=== PATIENT | female | born 1990 | race Caucasian/White ===

== ENCOUNTER → 2020-11-28 10:24 | Outpatient (BNVA) | payer OTHER, SELFPAY | PROVIDERS: PCP Internal Medicine; Visit Provider Surgery | DX: Z01.818 Encounter for other preprocedural examination (principal); E66.01 Morbid (severe) obesity due to excess calories; Z68.43 Body mass index [BMI] 50.0-59.9, adult; R06.02 Shortness of breath | CPT/HCPCS: 99212 ==

== ENCOUNTER → 2020-12-12 08:01 | Outpatient (BNVA) | payer OTHER, SELFPAY | PROVIDERS: Visit Provider Surgery ==

== ENCOUNTER 2020-12-13 09:20 | Outpatient (REF) | payer OTHER, SELFPAY ==
[2020-12-15 12:36] LABS: H Pylori Breath Test NOT DETECTED (NOT DETECTED)
== END 2020-12-13 09:21 | disposition home or self-care (01) ==
LOC: HO.LNP 09:20
PROVIDERS: Visit Provider Physician Assistant
DX: Z01.818 Encounter for other preprocedural examination (principal); Z11.0 Encounter for screening for intestinal infectious diseases
CPT/HCPCS: 83013; 99211

== ENCOUNTER → 2020-12-16 08:01 | Outpatient (BNVA) | payer OTHER, SELFPAY | PROVIDERS: Visit Provider Surgery ==

== ENCOUNTER → 2020-12-26 08:11 | Outpatient (BNVA) | payer OTHER, SELFPAY | PROVIDERS: Visit Provider Dietitian, Registered | DX: E66.01 Morbid (severe) obesity due to excess calories (principal) | CPT/HCPCS: 97802 ==

== ENCOUNTER → 2021-01-02 09:28 | Outpatient (REF) | payer OTHER, SELFPAY ==
--- NOTE | ~2021-01-02 | XR_ITS ---
EXAMINATION: XR CHEST CLINICAL INFORMATION: Shortness of breath. COMPARISON: Chest radiograph dated 04/16/2019. TECHNIQUE: 2 views of the chest were obtained. FINDINGS: The lungs are clear. The cardiomediastinal silhouette is normal in size. There is no pleural effusion or pneumothorax. No acute osseous abnormality. XR/XR chest 2V IMPRESSION: No acute cardiopulmonary findings.
--- NOTE | 2021-01-02 09:36 | ECG_ITS ---
Test Reason : SOB Blood Pressure : / mmHG Vent. Rate : 077 BPM Atrial Rate : 077 BPM P-R Int : 162 ms QRS Dur : 094 ms QT Int : 384 ms P-R-T Axes : 027 019 021 degrees QTc Int : 434 ms Normal sinus rhythm Early repolarization Borderline ECG When compared with ECG of 16-APR-2019 11:14, No significant change was found Referred By: Keely Tay Electronically Signed By:GIBRAN GILLILAND
[2021-01-02 10:29] LABS: MANUAL DIFF FLAG NO
[2021-01-02 10:36] LABS: Basophils Percent Auto 0.3 % (0-2); Eosinophils Absolute Auto 0.2 X10*3/uL (0.0-0.4); Hematocrit 41.2 % (37-47); Hemoglobin 13.4 g/dl (12.0-16.0); Imm Gran Abs Auto 0.05 X10*3/uL (0.00-0.03); Imm Gran Pct Auto 0.8 % (0.0-0.4); Lymphocytes Absolute Auto 1.1 X10*3/uL (1.2-4.9); Mean Corpuscular HGB Conc 32.5 g/dl (31.0-35.0); Mean Corpuscular Hemoglobin 29.2 pg (27.0-33.0); Mean Corpuscular Volume 89.8 fL (80-98); Mean Platelet Volume 9.7 fL (9.4-12.3); Monocytes Absolute Auto 0.4 X10*3/uL (0.1-1.2); Neutrophils Absolute Auto 4.6 X10*3/uL (2.0-8.3); Neutrophils Percent Auto 71.9 % (45-73); Platelet Count 293 X10*3/uL (160-400); Red Blood Count 4.59 X10*6/uL (4.20-5.50); Red Cell Distribution Width 13.4 % (11.0-16.0); White Blood Count 6.3 X10*3/uL (4.8-10.8)
[2021-01-02 10:52] LABS: Estimated Average Glucose 88 mg/dL; Hemoglobin A1c % 4.7 %
[2021-01-02 11:08] LABS: Alanine Aminotransferase 27 U/L (0-31); Albumin Level 4.1 g/dL (3.5-5.0); Alkaline Phosphatase 72 U/L (39-117); Anion Gap 13 (12-20); Aspartate Amino Transferase 15 U/L (5-31); Bilirubin Total 0.4 mg/dL (0.0-1.0); Blood Urea Nitrogen 10 mg/dL (9-16); C Reactive Protein 1.02 mg/dL (< or = 0.50); Calcium 9.2 mg/dL (8.4-10.2); Carbon Dioxide 26 mmol/L (22-29); Chloride 105 mmol/L (96-108); Cholesterol 142 mg/dL; Estimated Glomerular Filt Rate > 60; Glucose Fasting 93 mg/dL (60-99); HDL Cholesterol 29 mg/dL; Iron 75 mcg/dL (30-160); LDL Cholesterol Calculated 92 mg/dl; Percent Iron Saturation 24 % (15-50); Potassium 4.2 mmol/L (3.3-5.1); Sodium 140 mmol/L (135-145); Total Iron Binding Capacity 307 mcg/dL (228-428); Total Protein 6.8 g/dL (6.5-8.0); Triglycerides 105 mg/dL; Unsaturated Iron Binding 232 ug/dL
[2021-01-02 11:29] LABS: Thyroid Stimulating Hormone 0.45 uIU/mL (0.32-4.0); Vitamin D 25-OH Total 12.2 ng/mL (>30)
[2021-01-02 11:33] LABS: Vitamin B12 373 pg/mL (200-900)
[2021-01-03 12:22] LABS: Calcium (PTHI) 9.5 mg/dL (8.6-10.2); PTHI 82 pg/mL (14-64)
[2021-01-05 16:02] LABS: Zinc 73 mcg/dL (60-130)
[2021-01-05 20:46] LABS: Vitamin A 33 mcg/dL (38-98)
[2021-01-06 06:21] LABS: Vitamin B1 <6 nmol/L (8-30)
== END ==
LOC: HO.CARD 09:28
PROVIDERS: Visit Provider Surgery
DX: Z01.818 Encounter for other preprocedural examination (principal); R06.02 Shortness of breath; K91.2 Postsurgical malabsorption, not elsewhere classified; Z90.3 Acquired absence of stomach [part of]
CPT/HCPCS: 36415; 71046; 80053; 80061; 82306; 82607; 83036; 83540; 83970; 84425; 84443; 84590; 84630; 85025; 86140; 93005

== ENCOUNTER → 2021-01-10 10:22 | Outpatient (BNVA) | payer OTHER, SELFPAY | PROVIDERS: Visit Provider Surgery | DX: E66.01 Morbid (severe) obesity due to excess calories (principal); Z68.43 Body mass index [BMI] 50.0-59.9, adult | CPT/HCPCS: 99212 ==

== ENCOUNTER → 2021-01-27 09:24 | Outpatient (BNVA) | payer OTHER, SELFPAY | PROVIDERS: Visit Provider Surgery | DX: E66.01 Morbid (severe) obesity due to excess calories (principal); Z68.43 Body mass index [BMI] 50.0-59.9, adult | CPT/HCPCS: 99212 ==

== ENCOUNTER → 2021-02-14 09:44 | Outpatient (BNVA) | payer OTHER, SELFPAY | PROVIDERS: PCP Physician Assistant; Visit Provider Surgery | DX: E66.01 Morbid (severe) obesity due to excess calories (principal); Z68.43 Body mass index [BMI] 50.0-59.9, adult | CPT/HCPCS: 99212 ==

== ENCOUNTER → 2021-04-04 13:45 | Outpatient (BNVA) | payer OTHER, SELFPAY | PROVIDERS: PCP Physician Assistant; Visit Provider Surgery | DX: E66.01 Morbid (severe) obesity due to excess calories (principal); K21.9 Gastro-esophageal reflux disease without esophagitis; I10 Essential (primary) hypertension; Z68.42 Body mass index [BMI] 45.0-49.9, adult; Z88.8 Allergy status to other drugs, medicaments and biological substances; Z79.899 Other long term (current) drug therapy | CPT/HCPCS: 99212 ==

== ENCOUNTER 2021-04-06 09:31 | Outpatient (REF) | payer OTHER, SELFPAY ==
[2021-04-06 10:49] LABS: Vitamin D 25-OH Total 26.2 ng/mL (>30)
[2021-04-12 10:32] LABS: Vitamin A 45 mcg/dL (38-98)
[2021-04-12 13:16] LABS: Vitamin B1 9 nmol/L (8-30)
[2021-04-14 22:27] LABS: Cotinine, U <2 ng/mL; Nicotine, U 2 ng/mL
== END 2021-04-06 09:32 | disposition home or self-care (01) ==
LOC: HO.LAB 09:31
PROVIDERS: PCP Physician Assistant; Visit Provider Surgery
DX: Z01.818 Encounter for other preprocedural examination (principal); E55.9 Vitamin D deficiency, unspecified; E51.9 Thiamine deficiency, unspecified; F17.200 Nicotine dependence, unspecified, uncomplicated; E50.9 Vitamin A deficiency, unspecified
CPT/HCPCS: 80323; 82306; 84425; 84590

== ENCOUNTER → 2021-04-27 09:07 | Outpatient (BNVA) | payer OTHER, SELFPAY | PROVIDERS: PCP Physician Assistant; Referring Provider Physician Assistant; Visit Provider Surgery | DX: E66.01 Morbid (severe) obesity due to excess calories (principal); Z68.43 Body mass index [BMI] 50.0-59.9, adult | CPT/HCPCS: 99212 ==

== ENCOUNTER → 2021-04-28 13:20 | Outpatient (BNVA) | payer OTHER, SELFPAY | PROVIDERS: PCP Physician Assistant; Visit Provider Physician Assistant ==

== ENCOUNTER 2021-05-03 10:32 | Inpatient (IN) | payer OTHER, SELFPAY ==
[2021-04-27 11:17] VITALS: BMI 49.2
--- NOTE | 2021-04-28 14:48 | ECG_ITS ---
Test Reason : SOB Blood Pressure : / mmHG Vent. Rate : 077 BPM Atrial Rate : 077 BPM P-R Int : 156 ms QRS Dur : 094 ms QT Int : 384 ms P-R-T Axes : 050 028 032 degrees QTc Int : 434 ms Normal sinus rhythm Normal ECG When compared with ECG of 02-JAN-2021 09:41, No significant change was found Referred By: Keely Tay Electronically Signed By:Michael Winchester
[2021-04-28 15:24] LABS: MANUAL DIFF FLAG NO
[2021-04-28 15:34] LABS: Basophils Percent Auto 0.2 % (0-2); Eosinophils Absolute Auto 0.4 X10*3/uL (0.0-0.4); Eosinophils Percent Auto 3.7 % (0-4); Glucose Urine UA NEG (NEG); Hematocrit 40.7 % (37-47); Hemoglobin 13.1 g/dl (12.0-16.0); Imm Gran Abs Auto 0.04 X10*3/uL (0.00-0.03); Imm Gran Pct Auto 0.4 % (0.0-0.4); Leukocyte Esterase Urine NEG (NEG); Lymphocytes Absolute Auto 1.4 X10*3/uL (1.2-4.9); Lymphocytes Percent Auto 14.2 % (20-40); Mean Corpuscular HGB Conc 32.2 g/dl (31.0-35.0); Mean Corpuscular Hemoglobin 28.9 pg (27.0-33.0); Mean Corpuscular Volume 89.6 fL (80-98); Mean Platelet Volume 9.6 fL (9.4-12.3); Monocytes Absolute Auto 0.6 X10*3/uL (0.1-1.2); Neutrophils Absolute Auto 7.5 X10*3/uL (2.0-8.3); Neutrophils Percent Auto 75.5 % (45-73); Nitrite Urine NEG (NEG); Platelet Count 280 X10*3/uL (160-400); Red Blood Count 4.54 X10*6/uL (4.20-5.50); Red Cell Distribution Width 13.9 % (11.0-16.0); Specific Gravity - Urine 1.015 (1.005-1.025); Urine Blood NEG (NEG); Urine Ketones NEG (NEG); Urine Protein NEG (NEG-TRACE)
[2021-04-28 15:36] LABS: Appearance Urine HAZY; Color Urine YELLOW
[2021-04-28 15:37] LABS: UPreg QC Valid YES; Urine Pregnancy NEGATIVE (NEGATIVE)
[2021-04-28 15:38] LABS: INTERNATIONAL NORM RATIO 1.1 (0.9-1.1); Prothrombin Time 12.6 SEC (9.9-13.0)
[2021-04-28 15:40] LABS: Partial Thromboplastin Time 37.2 SEC (24.1-38.0)
[2021-04-28 15:46] LABS: Anion Gap 12 (12-20); Blood Urea Nitrogen 12 mg/dL (9-16); Calcium 9.4 mg/dL (8.4-10.2); Carbon Dioxide 24 mmol/L (22-29); Chloride 106 mmol/L (96-108); Creatinine Clr Calc Pharmacy 164.1; Estimated Glomerular Filt Rate > 60; Glucose Random 78 mg/dL (60-115); Potassium 4.2 mmol/L (3.3-5.1); Sodium 138 mmol/L (135-145)
--- NOTE | 2021-05-01 13:35 | HO.ANESPROP2 ---
Documented by User: Ellen Rahmanney 05/01/21 13:36 HPI - Anesthesia Eval Consult details Narrative: 30yo F for Gastrectomy Sleeve,EGD, Poss Diaphragmatic Hernia, Poss Ventral Hernia, Poss open PMFSH Active Problems Active Problems: All Active Problems (Updated 04/27/21 @ 11:21 by Zora Pratt) Preoperative examination (Acute) Shortness of breath (Acute) BMI 50.0-59.9, adult (Acute) Adjustment disorder, unspecified (Acute) Vitamin D deficiency (Acute) Vitamin A deficiency (Acute) Vitamin B1 deficiency (Acute) Smoker (Acute) Morbid obesity due to excess calories (Acute) Past Medical History Medical History Arthritis Asthma BMI 45.0-49.9, adult COVID-19 vaccine series completed GERD (gastroesophageal reflux disease) HTN (hypertension) Hx of concussion Morbid obesity due to excess calories Family History Family History Mother Colitis Anemia Father Hypertension Cancer of lung Sister Acute bronchitis Son No problems noted. Son No problems noted. Daughter No problems noted. Surgical History Surgical History Hx of section Hx of local excision of skin lesion Hx of wisdom tooth extraction Social History Social History Are you a primary anesthesiologist and critical care to a significant other at home: Yes (children-currently living with parents) Do you presently have visiting nurse or other home services: No Alcohol intake: current Alcohol intake frequency: holidays/special occasions only Patient Tobacco Use Status: Former Tobacco user Quit Date: 02/2021 Tobacco use type: Cigarette Years Smoked: 13 Use of substances other than those prescribed or required for medical reasons: No Have you been hit, kicked, punched, or otherwise hurt by someone within the past year? If so, by whom?: No Are you DNR?: No Advance Directives: No (states is mother but no official form) Advance Directives Information Provided: Yes (states is mother) Advance Directives on File: No Recently lost weight without trying: No Eating poorly because of decreased appetite: No Nutrition Risks: No Nutritional Risk Patient : No (has IUD) FDLMP: N/A-has IUD : No Poor oral hygiene: No (one cracked molar-lower left) Meds Allergies Allergy/AdvReac Type Severity Reaction Status Date / Time minocycline Allergy Intermediate Rash Verified 04/26/21 11:45 Home Medications Medication Instructions Recorded Confirmed Last Taken Type epinephrine 0.3 mg/0.3 mL 0.3 ml IM ONCE PRN 11/28/20 04/27/21 Unknown History injection, auto-injector lisinopril 10 1 tab PO DAILY 11/28/20 04/27/21 Unknown History mg-hydrochlorothiazide 12.5 mg tablet levonorgestrel 20 mcg/24 hours (6 1 insert INTRAUTERINE CONT 04/04/21 04/27/21 Unknown History yrs) 52 mg intrauterine device (Mirena) ergocalciferol (vitamin D2) 1,250 1 cap PO QWEEK 04/27/21 04/27/21 Unknown History mcg (50,000 unit) capsule Exam Exam Date and Time: May 01, 2021 1335 Height,Weight and Vital Signs: Height 5 ft 7 in Weight 142.609 kg Pertinent Lab Results Pertinent Lab Results: Laboratory Tests 04/28/21 04/28/21 04/28/21 15:00 15:00 15:00 WBC 10.0 RBC 4.54 Hgb 13.1 Hct 40.7 MCV 89.6 MCH 28.9 MCHC 32.2 RDW 13.9 Plt Count 280 MPV 9.6 Immature Gran % (Auto) 0.4 Neut % (Auto) 75.5 H Lymph % (Auto) 14.2 L [place] % (Auto) 6.0 Eos % (Auto) 3.7 Baso % (Auto) 0.2 Lymph # (Auto) 1.4 [place] # (Auto) 0.6 Eos # (Auto) 0.4 Baso # (Auto) 0.0 Abs Immat Gran (auto) 0.04 H Absolute Neuts (auto) 7.5 Absolute Nucleated RBC 0.000 Nucleated RBC % (auto) 0.0 PT 12.6 INR 1.1 APTT 37.2 Sodium Potassium Chloride Carbon Dioxide Anion Gap BUN Creatinine Estim Creat Clear Calc Estimated GFR Random Glucose Calcium Albumin Urine Color YELLOW Urine Appearance HAZY Urine pH 8.0 Ur Specific [place] 1.015 Urine Protein NEG Urine Glucose (UA) NEG Urine Ketones NEG Urine Blood NEG Urine Nitrite NEG Ur Leukocyte Esterase NEG Urine Test Blood Type Antibody Screen 04/28/21 04/28/21 04/28/21 15:00 15:00 15:00 WBC RBC Hgb Hct MCV MCH MCHC RDW Plt Count MPV Immature Gran % (Auto) Neut % (Auto) Lymph % (Auto) Am[place] % (Auto) Eos % (Auto) Baso % (Auto) Lymph # (Auto) [place] # (Auto) Eos # (Auto) Baso # (Auto) Abs Immat Gran (auto) Absolute Neuts (auto) Absolute Nucleated RBC Nucleated RBC % (auto) PT INR APTT Sodium 138 Potassium 4.2 Chloride 106 Carbon Dioxide 24 Anion Gap 12 BUN 12 Creatinine 0.73 Estim Creat Clear Calc 164.1 Estimated GFR > 60 Random Glucose 78 Calcium 9.4 Albumin 4.0 Urine Color Urine Appearance Urine pH Ur Specific [place] Urine Protein Urine Glucose (UA) Urine Ketones Urine Blood Urine Nitrite Ur Leukocyte Esterase Urine Test NEGATIVE Blood Type A Positive Antibody Screen NEGATIVE Narrative Narrative: EKG 04/2021 Vent. Rate : 077 BPM ? ? Atrial Rate : 077 BPM ?? P-R Int : 156 ms? QRS Dur : 094 ms ? ? QT Int : 384 ms ? ? ? P-R-T Axes : 050 028 032 degrees ?? QTc Int : 434 ms ? Normal sinus rhythm Normal ECG When compared with ECG of 02-JAN-2021 09:41, No significant change was found Assessment and Plan Assessment Anesthesia Assessment: Chart Reviewed Documented by User: Italia Tucker MD 05/03/21 12:26 [facility] Past Medical History Medical History Arthritis Asthma BMI 45.0-49.9, adult COVID-19 vaccine series completed GERD (gastroesophageal reflux disease) HTN (hypertension) Hx of concussion Morbid obesity due to excess calories Family History Family History Mother Colitis Anemia Father Hypertension Cancer of lung Sister Acute bronchitis Son No problems noted. Son No problems noted. Daughter No problems noted. Family history of problems with anesthesia: No Surgical History Surgical History Hx of section Hx of local excision of skin lesion Hx of wisdom tooth extraction History of Problems with Anesthesia: No Social History Social History Are you a primary anesthesiologist and critical care to a significant other at home: Yes (children-currently living with parents) Do you presently have visiting nurse or other home services: No Alcohol intake: current Alcohol intake frequency: holidays/special occasions only Patient Tobacco Use Status: Former Tobacco user Quit Date: 02/2021 Tobacco use type: Cigarette Years Smoked: 13 Use of substances other than those prescribed or required for medical reasons: No Have you been hit, kicked, punched, or otherwise hurt by someone within the past year? If so, by whom?: No Are you DNR?: No Advance Directives: No (states is mother but no official form) Advance Directives Information Provided: Yes (states is mother) Advance Directives on File: No Recently lost weight without trying: No Eating poorly because of decreased appetite: No Nutrition Risks: No Nutritional Risk Patient : No (has IUD) FDLMP: N/A-has IUD : No Poor oral hygiene: No (one cracked molar-lower left) Meds Allergies Allergy/AdvReac Type Severity Reaction Status Date / Time minocycline Allergy Intermediate Rash Verified 04/26/21 11:45 Home Medications Medication Instructions Recorded Confirmed Last Taken Type epinephrine 0.3 mg/0.3 mL 0.3 ml IM ONCE PRN 11/28/20 04/27/21 Unknown History injection, auto-injector lisinopril 10 1 tab PO DAILY 11/28/20 04/27/21 Unknown History mg-hydrochlorothiazide 12.5 mg tablet levonorgestrel 20 mcg/24 hours (6 1 insert INTRAUTERINE CONT 04/04/21 04/27/21 Unknown History yrs) 52 mg intrauterine device (Mirena) ergocalciferol (vitamin D2) 1,250 1 cap PO QWEEK 04/27/21 04/27/21 Unknown History mcg (50,000 unit) capsule Exam Airway Mallampati Class: II TM Dist: >3cm Neck ROM: Full Assessment and Plan Assessment Anesthesia Assessment: Anesthesia Plan Discussed Final Anesthetic Review Family History of Problems with Anesthesia: No History of Problems with Anesthesia: No NPO: Yes ASA Class: III Final Preanesthetic Review: No Changes in Pt Med Stat, Meds/Allgs Chart Reviewed, Consent Obtained/Reviewed and Anes Risks/Benef Reviewed Patient Risk: Intermediate Procedure Risk: Intermediate Assessment/Block/Sedation in SS: Assess/Block/Sedation-SS Anesthetic Plan Anesthetic Plan: GA Disposition: Standard PACU
--- NOTE | 2021-05-02 16:03 | MHC.SHP ---
Pre-Procedural Eval Section A Date of Service: 05/02/21 Section B Chief Complaint: Morbid Severe Obesity Allergies: Allergies Allergy/AdvReac Type Severity Reaction Status Date / Time minocycline Allergy Intermediate Rash Verified 04/26/21 11:45 Plan I have reviewed the history and physical and performed a pertinent physical examination on my patient. No changes have occurred unless specified.
[2021-05-03] VITALS (15 sets, daily range): BP systolic 150–181; BP diastolic 62–101; PULSE 53–85; RESP 16–20; TEMP 36.3–36.9; O2SAT 96–100
[2021-05-03 10:52] LABS: UPreg QC Valid YES; Urine Pregnancy NEGATIVE (NEGATIVE)
[2021-05-03 11:05] LABS: COVID-19 Test Negative (Negative); IDNOW Serial# 9DD0AD1C
--- NOTE | 2021-05-03 14:17 | PM.OP ---
Brief Operative Note Date of Service: 05/03/21 Pre-op diagnosis: Morbid obesity, BMI 49.2, hypertension, gastroesophageal reflux disease Post-op diagnosis: other (Same and hiatal hernia) Procedure: Laparoscopic sleeve gastrectomy, hiatal hernia repair, intraoperative endoscopy, and Rikki block Implants: None Surgeon: Keely Tay MD Anesthesia: GETA Was an Emergency Spill Response Technician used for this Procedure?: Yes Emergency Spill Response Technician: Shameka Hartman Estimated blood loss (mL): 5 Pathology: other (Partial gastrectomy) Condition: stable Disposition: PACU
--- NOTE | 2021-05-03 14:18 | P.OP_ITS ---
Operative Note Operative Note Date of Service: 05/03/21 Narrative: Patient was brought into the operating room and placed on the operating room table in the supine position. General anesthesia was induced. Normal DVT prophylaxis was instituted and the patient received 2 grams of cefotetan preoperatively. The abdomen was then prepped and draped in the normal sterile fashion. A safety time-out was performed. A mixture of 1% lidocaine with epinephrine and ?% Marcaine plain was used to an esthetize the planned incision site in the left upper quadrant. A #11 scalpel was used to make a 5 mm left upper quadrant transverse incision through which a veress needle was placed. Three pops were heard going through the fascia. A saline drop test was used to confirm that the veress needle was intraabdominal. An optiview technique was then used to place a 5mm port in the left upper quadrant. A 5 mm 30 degree laproscope was then placed through this port and the abdominal cavity was surveyed and was normal. The patient was placed in reverse Trendelenburg positioning. A beena liver retractor was then placed in the subxyphoid position and it was used to hold up the left lobe of the liver to the abdominal wall. This was secured to the bed using the liver retractor nguyen. A RAFITA block was then performed for pain control on the right side of the abdomen. A 5 mm port was placed in the right upper quadrant near the falciform ligament. A 12 mm port was then placed in the mid epigastrium. One additional 5 mm port was placed in the left upper quadrant just to the left of the placement of the first port. I then performed a RAFITA block on the left side of the abdomen. I then removed the epigastric fat pad; there was a small anterior hiatal hernia noted. I reapproximated the left and right crura with a total of 2 stitches of 2-0 ethibond and a laparoscopic knot pusher. There was no residual hiatal hernia. I then opened up the angle of His. We then gained entry into the lesser sac about 4-5 cm from the pylorus. I had anesthesia place a 34 [place] orogastric tube into the distal antrum to use as a sizing tool for gastric pouch size. I divided the short gastric vessels up to the angle of His. We then started the creation of the gastric pouch by firing a 60 mm purple load endostapler up the stomach about 4-5 cm from the pylorus. We completed the creation of the gastric pouch using a total of 5 firings of a 60 mm purple load stapler. We had anesthesia remove the orogastric tube, then we clamped across the distal antrum using a fired 60 mm endostapler. We flattened the patient and then instilled normal saline surrounding the newly created staple line. I then performed an on-table endoscopy. I passed the gastroscopy into the posterior oropharynx and down the esophagus evaluating the esophageal mucosa which was normal. There was no evidence of hiatal hernia. I passed the gastroscope into the gastric pouch and insufflated the gastric pouch. There was healthy pink mucosa and no evidence of active bleeding. There was no evidence of leak on laparoscopy. I desufflated the gastric pouch and removed the endoscope. I removed the endostapler from the abdomen and suctioned the fluid from the left upper quadrant. I then removed the partial gastrectomy specimen through the epigastric 12 mm port site. I reapproximated the 12 mm port using a 0 maxon suture with a laparoscopic suture passer. I instilled local anesthetic into the fascial closure site and tied the suture down at a pressure of 8-10 mm of Hg. There was no residual fascial defect. We removed the liver retractor and the left upper quadrant 5 mm ports under direct visualization. There was no evidence of any active bleeding. I desufflated the abdomen through the last remaining port and removed the laparoscope and 5 mm port. We reapproximated all incisions with a 4-0 monocryl subcuticular stitch. We cleaned and dried the abdominal skin and applied dermabond skin glue. All count were correct at the end of the case. The patient was awake and in stable condition prior to extubation and transfer to the recovery room.
[2021-05-03] MEDS: Metoclopramide HCl 10 MG/2 ML VIAL IVPUSH (14:48)
[2021-05-03] MEDS: Lactated Ringers 1,000 ML 125 ML IVCONT ×2 (15:28→23:06)
[2021-05-03] MEDS: HYDROmorphone HCl 0.5 MG/0.5 ML SYRINGE IVPUSH (15:30)
[2021-05-03] MEDS: HYDROmorphone HCl 0.5 MG/0.5 ML SYRINGE 0.25 MG IVPUSH (19:36)
[2021-05-03] MEDS: Famotidine/PF 20 MG/2 ML VIAL IVPUSH (20:49)
[2021-05-03] MEDS: 0.9 % Sodium Chloride Flush 3 ML SYRINGE IVFLUSH (20:49)
--- NOTE | 2021-05-03 21:12 | P.DS_ITS ---
DS: Providers Provider Date of Service: 05/04/21 Date of admission: 05/03/21 10:32 Primary care physician: ROBERT Islas DS: Medications Discharge Medications Home Medications: Home Medications Medication Instructions Recorded Confirmed epinephrine 0.3 mg/0.3 mL 0.3 ml IM ONCE PRN 11/28/20 04/27/21 injection, auto-injector lisinopril 10 1 tab PO DAILY 11/28/20 04/27/21 mg-hydrochlorothiazide 12.5 mg tablet levonorgestrel 20 mcg/24 hours (6 1 insert INTRAUTERINE CONT 04/04/21 04/27/21 yrs) 52 mg intrauterine device (Mirena) ergocalciferol (vitamin D2) 1,250 1 cap PO QWEEK 04/27/21 04/27/21 mcg (50,000 unit) capsule Previous Rx's Medication Instructions Recorded acetaminophen 500 mg tablet 1,000 mg PO Q6H PRN #30 tab 04/27/21 (Tylenol Extra Strength) docusate sodium 100 mg capsule 100 mg PO BID #30 cap 04/27/21 (Colace) famotidine 20 mg tablet (Pepcid AC) 20 mg PO DAILY #30 tab 04/27/21 ondansetron HCl 4 mg tablet 4 mg PO Q6H PRN #30 tab 04/27/21 (Zofran) simethicone 80 mg chewable tablet 80 mg PO TID-QID PRN #30 tab 04/27/21 (Gas Relief (simethicone)) DS: Summary Time Spent with Patient Time attestation: Total time spent providing and/or coordinating discharge services: Discharge coordination time: Greater than 30 minutes Quality: Stroke Does the patient have a stroke diagnosis?: No Physical Exam Vital Signs: Vital Signs: Last Vital Signs Temp 97.3 F 05/03/21 19:22 Pulse 53 05/03/21 19:22 Resp 20 05/03/21 19:22 BP 160/80 H 05/03/21 19:40 Pulse Ox 96 05/03/21 19:22 Body Mass Index 49.2 DS: Data Data Completed and Pending Pending studies at discharge: Pending at discharge 05/03/21 13:59 Surgical [PTH] Routine Labs on day of discharge: Laboratory Results - last 24 hr 05/03/21 05/03/21 10:37 10:37 Urine Test NEGATIVE COVID-19 ([facility]) Negative COVID-19 Clin Com See Note Discharge Plan Discharge Patient Disposition: Home, Self-Care Discharge Diagnosis: obesity s/p LSG Referrals: Erica Woo PA [Primary Care Provider] - 1 Week Discharge Medications: Continued ergocalciferol (vitamin D2) 1,250 mcg (50,000 unit) capsule 1 cap PO QWEEK RF: 0 epinephrine 0.3 mg/0.3 mL auto-injector 0.3 ml IM ONCE PRN (Reason: Anaphylaxis) RF: 0 lisinopril-hydrochlorothiazide 10-12.5 mg tablet 1 tab PO DAILY RF: 0 acetaminophen [Tylenol Extra Strength] 500 mg tablet 1,000 mg PO Q6H PRN (Reason: pain) Qty: 30 RF: 1 famotidine [Pepcid AC] 20 mg tablet 20 mg PO DAILY Qty: 30 RF: 1 simethicone [Gas Relief (simethicone)] 80 mg tablet,chewable 80 mg PO TID-QID PRN (Reason: abdominal distention) Qty: 30 RF: 1 ondansetron HCl [Zofran] 4 mg tablet 4 mg PO Q6H PRN (Reason: nausea and vomiting) Qty: 30 RF: 1 docusate sodium [Colace] 100 mg capsule 100 mg PO BID Qty: 30 RF: 1 Mirena 20 mcg/24 hours (6 yrs) 52 mg intrauterine device 1 insert intrauterine CONT RF: 0 Discharge Orders: Discharge Order (Routine); Ordered 05/04/21 Ordered By: Keely Tay Diet: other Activity on Discharge: No heavy lifting Stand Alone Forms: Patient Portal Discharge page Activity Restrictions/Additional Instructions: Discharge Instructions 1. Please call your doctor or come back to the emergency room should any new symptoms arise. 2. You will receive a courtesy call from [facility] 24-48 hours after discharge. 3. Activity: abstain from alcohol, practice limited stair climbing, no bending, no driving, no exercise, no illicit substances, no lifting, no sex, no tub bath, no work. 4. Diet: continue stage 3 protein shakes until your [address] Tay. 5. Dressing Change/Wound Care: Your incision is covered by surgical glue. If the area is tender, you may apply an ice pack for short intervals (no more than 20 minutes on, followed by at least 20 minutes off). Do not apply heat. Do not use creams, lotions, or topical antibiotics unless instructed to do so by your surgeon. These can cause infection or allergic reaction. 6. Call your doctor if: - Your temperature exceeds 101.5 F - You experience excessive pain or swelling - You have an unexpected reaction to medication - You have excessive bleeding - You experience continued vomiting/nausea - Your incision begins to separate - Your incision shows signs of infection such as increased redness, swelling, excessive pain, heat, or drainage (light blood or clear fluid is normal) 7. General instructions: - No lifting greater than 5 lbs for the next 4 weeks. - No driving within 24 hours of taking narcotic pain medications. - If you do not move your bowels in the next 2 days, please take milk of magnesia over the counter. Please follow the post op diet and do not advance your diet until you are seen in the office in about 2 weeks. - Please walk around your home every hour or two to prevent blood clots from forming in your legs. You do not need to wake from sleeping to walk. - Please sleep in a bed or couch to prevent kinking at the hips and knees. - Please take your incentive spirometer (your lung inspector and adjuster golf club head) home with you and use it for the next few days to prevent pneumonias. - You may shower, no hot tubs, baths or swimming pools. - Please call the office with any questions or concerns such as increasing abdominal pain, fever, chills, shortness of breath, chest pain, leg pain or swelling, or redness or drainage from your incisions. - Please stay on stage 3 diet which includes sugar free clear liquids such as ice pops and jello and broth and crystal light. Avoid all carbonation. Please drink 3 protein shakes with at least 25-30 grams of protein daily or 3 of the Celebrate 4:1 shakes which can be purchased in our office. The Celebrate shakes have all of the bariatric vitamins you need if you consume these shakes. If you are drinking other protein shakes, you will need to purchase the Celebrate multivitamins and calcium that we provide in the office (they will provide all the vitamins you need). Please make sure you are consuming at least 40-60 ounces of water in addition to your 3 protein shakes daily. 8. Do not hesitate to contact the office with any questions at . The patient's medical history has been reviewed and they are considered low risk for post op DVT and therefore DVT prophylaxis is not considered necessary. Travel after surgery was reviewed. The patient has not disclosed any travel plans during the first 30 days after surgery and they have been advised that within the first 30 days after surgery any bus, plane, train or car travel over 2 hours in duration is contraindicated due to the possibility of developing blood clots from immobility. Any travel, needs to include periods of ambulation of 10 minutes in duration every 2 hours. The patient was instructed to discuss any plans for travel during this period with their bariatric surgeon. Discharge Summary Date of Service: 05/04/21 Pre-op diagnosis: Morbid obesity, BMI 49.2, hypertension, gastroesophageal reflux disease Post-op diagnosis: other (Same and hiatal hernia) Procedure: Laparoscopic sleeve gastrectomy, hiatal hernia repair, intraoperative endoscopy, and Rikki block Discharge Medications: 1. Simethicone 80mg tablet chewable (Si tablet every 6 hours orally for 7 days, #28, 1 RF) q4h prn gas 2. Acetaminophen 500 mg tablet (Si tablets as needed every 6 hours orally for 30 days, #240, 0 RF) 3. Ondansetron 4 mg tablet disintegrating (Si tablet every 6 hours orally for 7 days, #28, 1 RF) 4. Colace 100 mg capsule (Si capsule twice a day for 30 days, #60, 2 RF) 5. Pepcid 20 mg chewable tablet (Si tablet twice a day for 30 days, #60, 3 RF) Discharge Instructions: The patient should continue on the stage III bariatric diet, which includes 3 protein shakes of at least 20-30g of protein on a daily basis. The patient was encouraged to avoid drinking liquids with her protein shakes. They should wait 30-45 minutes in between her meals and drinking water. She should drink at least 40-60 ounces of water on a daily basis. They should ambulate while at home to avoid any blood clots in her lower extremities. They should call with any questions or concerns such as increase in abdominal pain, persistent nausea, vomiting, redness and drainage from her incisions, fever, chills, shortness of breast, or chest pain beyond what is normal for her. The patient should avoid all heavy lifting greater than 5 pounds for the next 4 weeks. The patient is already scheduled to follow up with me in 2 weeks time, but should call the office with any questions prior to that follow up appointment. The patient should not advance their diet until they are seen in the office for the 2 week appointment. Hospital Course: The patient was admitted after undergoing a LSG and HH repair. They were started on stage II (1 oz of fluid every 15 minutes) on POD #0. The next morning they were evaluated and started on stage III diet (protein shakes). All labs were within normal limits. On post-operative day #1 she was feeling better, nausea and epigastric pain improved and they were tolerating stage III bariatric diet well. The patient was discharged home. Discharge Disposition: Home. Care Plan Goals: weight loss Health Concerns: obesity Plan of Treatment: LSG Assessment: stable POD #1 Discharge Date/Time: 05/04/21 09:57
--- NOTE | 2021-05-03 21:12 | P.PNGS_ITS ---
Subjective Subjective Date of Service: 05/04/21 <Shameka Hartman PA-C - Last Filed: 05/03/21 21:13> 05/04/21 <Keely Tay MD - Last Filed: 05/04/21 12:28> Interval history: Pod #1 s/p LSG and HH repair. Doing well. Tolerating stage 3 diet, ambulating in hallway. Pain well controlled. Denies nausea or vomiting. Vitals and labs reviewed and are within limit for post op day 1. On exam, patient is well appearing, abdomen is soft, nd, mild appropriate incisional tenderness. Incisions c/d/i with dermabond in place. Plan: d/c home today. Follow up with me in 2 weeks. <Shameka Hartman PA-C - Last Filed: 05/03/21 21:13> Pod #1 s/p LSG and HH repair. Doing well. Tolerating stage 3 diet, ambulating in hallway. Pain well controlled. Denies nausea or vomiting. Vitals and labs reviewed and are within limit for post op day 1. On exam, patient is well appearing, abdomen is soft, nd, mild appropriate incisional tenderness. Incisions c/d/i with dermabond in place. Plan: d/c home today. Follow up with me in 2 weeks. 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 I agree with her history, physical exam and assessment and plan. Patient will be discharged home today to follow up with me again as an outpatient in 2 weeks. <Keely Tay MD - Last Filed: 05/04/21 12:28> Physical Exam Vital Signs: Vital Signs: Last Vital Signs Temp 97.3 F 05/03/21 19:22 Pulse 53 05/03/21 19:22 Resp 20 05/03/21 19:22 BP 160/80 H 05/03/21 19:40 Pulse Ox 96 05/03/21 19:22 Body Mass Index 49.2 <Shameka Hartman PA-C - Last Filed: 05/03/21 21:13> Const: General: cooperative, comfortable, no acute distress, alert and awake <Shameka Hartman PA-C - Last Filed: 05/03/21 21:13> Nutritional Appearance: obese <Shameka Hartman PA-C - Last Filed: 05/03/21 21:13> GI: Inspection: Yes normal to inspection, No distended and Yes incision (clean, dry, intact, dermabond in place) <Shameka Hartman PA-C - Last Filed: 05/03/21 21:13> Palpation (GI): Soft to palpation and Tenderness to palpation present (GI) (mild appropriate incisional tenderness) <Shameka Hartman PA-C - Last Filed: 05/03/21 21:13> Extrem: Right lower extremity: lower leg Details: Negative for no tenderness; No no edema <Shameka Hartman PA-C - Last Filed: 05/03/21 21:13> Left lower extremity: lower leg Details: Negative for no tenderness; No no edema <Shameka Hartman PA-C - Last Filed: 05/03/21 21:13> Procedures Date of Service Date of Service: 05/04/21 <Keely Tay MD - Last Filed: 05/04/21 12:28> Progress Note: A&P Fall Risk Details Current Medications: Current Medications Generic Name Dose Route Start Last Admin Trade Name Freq PRN Reason Stop Dose Admin Albuterol Sulfate 2.5 mg 05/03/21 10:32 Albuterol Sulfate (0.083%) 2.5 Mg/3 Ml Vial.Neb INHALE ONCE PRN Shortness of Breath/Wheezing Famotidine 20 mg 05/03/21 21:00 05/03/21 20:49 Famotidine/Pf 20 Mg/2 Ml Vial IVPUSH 20 mg BID ISAIAH Administration Hydromorphone HCl 0.5 mg 05/03/21 12:26 05/03/21 15:30 Hydromorphone Hcl 0.5 Mg/0.5 Ml Syringe IVPUSH 0.5 mg Q5M PRN Administration Pain, Severe (Pain Scale 7-10) Protocol Hydromorphone HCl 0.25 mg 05/03/21 14:26 05/03/21 19:36 Hydromorphone Hcl 0.5 Mg/0.5 Ml Syringe IVPUSH 0.25 mg Q4H PRN Administration pain Protocol Lactated Ringer's 1,000 mls @ 125 mls/hr 05/03/21 14:30 05/03/21 15:28 Lr IVCONT 125 mls/hr .Q8H ISAIAH Administration Cefotetan Disodium 2 gm/ 50 mls @ 100 mls/hr 05/04/21 00:00 Sodium Chloride IV 05/04/21 00:29 POSTOP ONE Acetaminophen 1,000 mg in 100 mls @ 16.7 mls/hr 05/03/21 14:30 05/03/21 19:40 Ofirmev IV 16.7 mls/hr .Q6H ISAIAH Administration Metoclopramide HCl 10 mg 05/03/21 14:26 05/03/21 14:48 Metoclopramide Hcl 10 Mg/2 Ml Vial IVPUSH 10 mg Q6H PRN Administration Nausea Ondansetron HCl 4 mg 05/03/21 12:26 Ondansetron Hcl 4 Mg/2 Ml Vial IVPUSH ONCE PRN Nausea and Vomiting Ondansetron HCl 4 mg 05/03/21 14:30 05/03/21 16:31 Ondansetron Hcl 4 Mg/2 Ml Vial IVPUSH Not Given Q8H ISAIAH Oxycodone HCl 5 mg 05/03/21 12:26 Oxycodone Hcl Immed Release 5 Mg Tablet PO ONCE PRN Pain, Severe (Pain Scale 7-10) Sodium Chloride 3 ml 05/03/21 16:00 05/03/21 20:49 0.9 % Sodium Chloride Flush 3 Ml Syringe IVFLUSH 3 ml QSHIFT ISAIAH Administration <Shameka Hartman PA-C - Last Filed: 05/03/21 21:13> Time Spent With Patient Time: Total time spent is greater than 50% in coordination of care (as documented) at patient's floor/unit and/or counseling patient: <Shameka Hartman PA-C - Last Filed: 05/03/21 21:13> Time with patient: less than 15 minutes <Keely Tay MD - Last Filed: 05/04/21 12:28> Quality Stroke Does the patient have a stroke diagnosis?: No <Keely Tay MD - Last Filed: 05/04/21 12:28> VTE Prior VTE?: No <Keely Tay MD - Last Filed: 05/04/21 12:28> VTE Risk Level:: Surgical - moderate <Keely Tay MD - Last Filed: 05/04/21 12:28> VTE Device Contraindication: N/A - Device Ordered <Keely Tay MD - Last Filed: 05/04/21 12:28> VTE Drug Contraindication: Treatment Not Indicated <Keely Tay MD - Last Filed: 05/04/21 12:28>
[2021-05-03] MEDS: lisinopriL 10 MG TABLET PO (21:35)
[2021-05-03] MEDS: ondansetron HCL 4 MG/2 ML VIAL IVPUSH (21:35)
[2021-05-04] VITALS: BP 162/70; PULSE 82; RESP 16; TEMP 36.7; O2SAT 97
[2021-05-04] MEDS: cefoTEtan disodium 2 GM in 0.9 % Sodium Chloride 50 ML IV (00:04)
[2021-05-04] MEDS: hydrALAZINE HCl 20 MG/ML VIAL 10 MG IVPUSH (02:09)
[2021-05-04] MEDS: Metoclopramide HCl 10 MG/2 ML VIAL IVPUSH (02:45)
[2021-05-04 04:00] VITALS: BP 154/80; PULSE 64; RESP 16; TEMP 36.9; O2SAT 99
[2021-05-04] MEDS: ondansetron HCL 4 MG/2 ML VIAL IVPUSH (06:14)
[2021-05-04] MEDS: Lactated Ringers 1,000 ML 125 ML IVCONT (06:15)
[2021-05-04 06:27] LABS: MANUAL DIFF FLAG NO
[2021-05-04 06:52] LABS: Basophils Percent Auto 0.2 % (0-2); Eosinophils Percent Auto 0.2 % (0-4); Hematocrit 38.7 % (37-47); Hemoglobin 12.8 g/dl (12.0-16.0); Imm Gran Abs Auto 0.07 X10*3/uL (0.00-0.03); Imm Gran Pct Auto 0.5 % (0.0-0.4); Lymphocytes Percent Auto 7.8 % (20-40); Mean Corpuscular HGB Conc 33.1 g/dl (31.0-35.0); Mean Corpuscular Hemoglobin 29.2 pg (27.0-33.0); Mean Corpuscular Volume 88.2 fL (80-98); Mean Platelet Volume 9.9 fL (9.4-12.3); Monocytes Absolute Auto 0.8 X10*3/uL (0.1-1.2); Monocytes Percent Auto 6.3 % (2-11); Neutrophils Absolute Auto 11.1 X10*3/uL (2.0-8.3); Platelet Count 282 X10*3/uL (160-400); Red Blood Count 4.39 X10*6/uL (4.20-5.50); Red Cell Distribution Width 13.3 % (11.0-16.0)
[2021-05-04 07:00] LABS: Anion Gap 12 (12-20); Blood Urea Nitrogen 10 mg/dL (9-16); Carbon Dioxide 23 mmol/L (22-29); Chloride 106 mmol/L (96-108); Creatinine Clr Calc Pharmacy 187.3; Estimated Glomerular Filt Rate > 60; Glucose Random 93 mg/dL (60-115); Potassium 3.9 mmol/L (3.3-5.1); Sodium 137 mmol/L (135-145)
[2021-05-04] MEDS: Famotidine/PF 20 MG/2 ML VIAL IVPUSH (07:16)
[2021-05-04 08:00] VITALS: BP 150/60; PULSE 58; RESP 16; TEMP 36.7; O2SAT 98
--- NOTE | 2021-05-04 09:38 | MHC.CM.PN ---
EMR REVIEWED, PT ADMITTED S/P SLEEVE GASTRECTOMY, CM MET W/PT WHO REPORTS SHE LIVES W/ AND 3 CHILDREN, PT WORKS, IS INDEPENDENT W/ALL CARE, NO DME AND NO HOME SERVICES, PT VERIES PHARMACY AND PCP, PT COMPLETED HCP W/CM, EDUCATION PROVIDED, PT GIVEN ORIGINAL W/2 COPIES AND A COPY WAS UPLOADED TO PR Slides AND PLACED IN CHART. D/C PLAN: HOME SELF-CARE W/FOLLOW-UP W/SURGEON IN OFFICE, FOR TRANPSORT PCP: JAZMIN AZAR HCP: GEETHA COHN ([place]) [phone] ALTERNATE: JESSICA HARRISON ([place]) [phone]
== END 2021-05-04 09:57 | disposition home or self-care (01) | DRG 403 ==
LOC: HO.SSSA 10:36 → HO.S3 15:43
PROVIDERS: Nurse Practitioner; Physician Assistant; Admitting Provider Surgery; PCP Physician Assistant; Visit Provider Surgery
PROC: 0DB64Z3 Excision of Stomach, Percutaneous Endoscopic Approach, Vertical (ICD-10-PCS; CPT 43845; principal; 2021-05-03 12:00)
DX: E66.01 Morbid (severe) obesity due to excess calories (principal); I10 Essential (primary) hypertension; J45.909 Unspecified asthma, uncomplicated; M19.90 Unspecified osteoarthritis, unspecified site; K44.9 Diaphragmatic hernia without obstruction or gangrene; K21.9 Gastro-esophageal reflux disease without esophagitis; Z20.822 Contact with and (suspected) exposure to COVID-19; Z87.891 Personal history of nicotine dependence; Z79.899 Other long term (current) drug therapy
CPT/HCPCS: 36415; 80048; 81003; 81025; 82040; 85025; 85610; 85730; 86850; 86900; 86901; 87635; 88307; 88342; 93005; 99024; C1776; J0131; J1100; J1170; J2250; J2405; J2550; J2765; J3010

== ENCOUNTER → 2021-05-17 09:21 | Outpatient (BNVA) | payer OTHER, SELFPAY | PROVIDERS: PCP Physician Assistant; Visit Provider Dietitian, Registered | DX: E66.01 Morbid (severe) obesity due to excess calories (principal); K21.9 Gastro-esophageal reflux disease without esophagitis; I10 Essential (primary) hypertension; F17.210 Nicotine dependence, cigarettes, uncomplicated; Z68.42 Body mass index [BMI] 45.0-49.9, adult; Z88.1 Allergy status to other antibiotic agents | CPT/HCPCS: 97803 ==

== ENCOUNTER → 2021-06-13 10:23 | Outpatient (BNVA) | payer OTHER, SELFPAY | PROVIDERS: PCP Physician Assistant; Visit Provider Surgery | DX: E66.01 Morbid (severe) obesity due to excess calories (principal); Z68.41 Body mass index [BMI] 40.0-44.9, adult; Z90.3 Acquired absence of stomach [part of]; Z98.890 Other specified postprocedural states; Z87.19 Personal history of other diseases of the digestive system | CPT/HCPCS: 99212 ==

== ENCOUNTER → 2021-07-04 08:02 | Outpatient (BNVA) | payer OTHER, SELFPAY | PROVIDERS: PCP Physician Assistant; Visit Provider Dietitian, Registered | DX: E66.9 Obesity, unspecified (principal); Z68.41 Body mass index [BMI] 40.0-44.9, adult | CPT/HCPCS: 97803 ==

== ENCOUNTER → 2021-11-28 08:08 | Outpatient (BNVA) | payer OTHER, SELFPAY | PROVIDERS: PCP Physician Assistant; Visit Provider Dietitian, Registered ==